=== PATIENT | male | born 1955 | race Caucasian/White ===

== ENCOUNTER 2016-12-14 11:14 | Day surgery (SDC) | payer OTHER ==
--- NOTE | ~2016-12-14 | EGD ---
EGD REPORT [facility] [address] 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 Estimated blood loss: None. Procedure: Pre-Anesthesia Assessment: - After reviewing the risks and benefits, the patient was deemed in satisfactory condition to undergo the procedure. - Prior to the procedure, a History and Physical was performed, and patient medications and allergies were reviewed. The patient's tolerance of previous anesthesia was also reviewed. The risks and benefits of the procedure and the sedation options and risks were discussed with the patient. All questions were answered, and informed consent was obtained. Prior Anticoagulants: The patient has taken Plavix (clopidogrel), last dose was 5 days prior to procedure. The patient had taken Xarelto last night. ASA Grade Assessment: III - A patient with severe systemic disease. After reviewing the risks and benefits, the patient was deemed in satisfactory condition to undergo the procedure. After I obtained informed consent, the scope was passed under direct vision. Throughout the procedure, the patient's blood pressure, pulse, and oxygen saturations were monitored continuously. The CF [id number] was introduced through the anus and advanced to the cecum, identified by appendiceal orifice and ileocecal valve. The colonoscopy was performed without difficulty. The ileocecal valve and appendiceal orifice were photographed. The patient tolerated the procedure well. The quality of the bowel preparation was adequate. The bowel preparation used was polyethylene glycol (PEG). Scope withdrawal time was 6 minutes. Findings: Non-bleeding internal hemorrhoids were found during retroflexion and were small and Grade I (internal hemorrhoids that do not prolapse). EGD REPORT [place] [id number] [place]. [address] NAME: CARL SERNA : [birth year] STATUS : REG [facility]#: [id number] AGE: 61 ADM/REG DATE : 12/14/16 MR#: [id number] REPORT SERV DATE: 12/14/16 DICTATED BY: YARELY HOWARD DATE: 12/14/16 REPORT STATUS : Draft TRANSCRIBED BY: [employer] DATE: 12/14/16 A few small-mouthed diverticula were found in the sigmoid colon and in the descending colon. The ascending colon and cecum appeared normal. Fecal Microbiota Transplant (Bacteriotherapy): Donor stool was prepared by Laboratory staff using water as per protocol. Approximately 450 mL of the emulsified donor stool was instilled in the ascending colon and in the cecum. A detailed colonoscopic exam could not be performed upon scope withdrawal secondary to limited visibility from the instilled stool. The exam was otherwise without abnormality. Impression: - Non-bleeding internal hemorrhoids. - Mild diverticulosis in the sigmoid colon and in the descending colon. - The ascending colon and cecum are normal. - Fecal Microbiota Transplant (Bacteriotherapy) performed in the ascending colon and in the cecum. - The examination was otherwise normal. Recommendation: - Discharge patient to home (ambulatory). - Resume pre-procedure diet. - Resume regular medications including Plavix (clopidogrel) today. - Continue Xarelto. - Complete oral Vancomycin. - Follow-up as needed. - Patient has a contact number available for emergencies. The signs and symptoms of potential delayed complications were discussed with the patient. Return to normal activities tomorrow. Written discharge instructions were provided to the patient. Procedure Code(s): --- Professional --- 54753, Colonoscopy, flexible, proximal to splenic flexure; diagnostic, with or without collection of specimen(s) by brushing or washing, with or without colon decompression (separate procedure) 08374, Preparation of fecal microbiota for instillation, including assessment of donor specimen Diagnosis Code(s): --- Professional --- K64.0, First degree hemorrhoids K57.30, Diverticulosis of large intestine without perforation or abscess without bleeding A04.7, Enterocolitis due to Clostridium difficile CPT copyright 2013 [employer]. All rights reserved. EGD REPORT [facility] [address] [address] NAME: CARL SERNA : [birth year] STATUS : REG [facility]#: [id number] AGE: 61 ADM/REG DATE : 12/14/16 MR#: [id number] REPORT SERV DATE: 12/14/16 DICTATED BY: YARELY HOWARD DATE: 12/14/16 REPORT STATUS : Draft TRANSCRIBED BY: [employer] DATE: 12/14/16 The codes documented in this report are preliminary and upon manager game review may be revised to meet current compliance requirements. YARELY HOWARD MD 12/14/2016 1:23 PM This report has been signed electronically. Number of Addenda: 0 Note Initiated On: 12/14/2016 12:07 PM Scope Withdrawal Time 0 hours 8 minutes 36 seconds [address] [address]
[~2016-12-14 11:14] MED LIST: ASA5GR PO; ASAB PO; ATIVAN2 MG PO; CARDIZEM PO; COR20 PO; CRESTOR20 MG PO; GLUCPH PO; K500 PO; KLONO5 PO; LEXAPRO10 PO; LEXAPRO20 PO; LEXAPRO5 MG PO; LISINOPRIL40 MG PO; LOP50 PO; LORTAB 5 PO; LORTAB10 PO; METHOC750B PO; NEUR300 PO; NITROSTAT0.4 MG SL; NORCO1 TA1 PO; PERCOCET1 TA4 PO; PLAVIX PO; PR25 PO; PRIN20 PO; PROTONIX PO; RANITIDINE300 MG PO; SYMAX-SR0.375 MG PO; VITAMIN B PO; XARELTO20 MG PO; ZANTAC 150 PO; ZOFRAN4 PO
== END 2016-12-14 23:59 | disposition home or self-care (01) ==
LOC: DMU 11:14
PROVIDERS: Internal Medicine Gastroenterology
PROC: 3E0H8GC Introduction of Other Therapeutic Substance into Lower GI, Via Natural or Artificial Opening Endoscopic (ICD-10-PCS; principal; 2016-12-14 13:15)
DX: A04.7 Enterocolitis due to Clostridium difficile (principal); K64.0 First degree hemorrhoids; K57.30 Diverticulosis of large intestine without perforation or abscess without bleeding; K21.9 Gastro-esophageal reflux disease without esophagitis; K44.9 Diaphragmatic hernia without obstruction or gangrene; I25.10 Atherosclerotic heart disease of native coronary artery without angina pectoris; I48.91 Unspecified atrial fibrillation; I25.2 Old myocardial infarction; E11.40 Type 2 diabetes mellitus with diabetic neuropathy, unspecified; E78.00 Pure hypercholesterolemia, unspecified; J44.9 Chronic obstructive pulmonary disease, unspecified; F41.9 Anxiety disorder, unspecified; G47.33 Obstructive sleep apnea (adult) (pediatric); H91.90 Unspecified hearing loss, unspecified ear; M19.90 Unspecified osteoarthritis, unspecified site; N20.0 Calculus of kidney; Z86.73 Personal history of transient ischemic attack (TIA), and cerebral infarction without residual deficits; Z98.1 Arthrodesis status; Z88.5 Allergy status to narcotic agent; Z87.891 Personal history of nicotine dependence; Z95.1 Presence of aortocoronary bypass graft; Z97.4 Presence of external hearing-aid; Z95.5 Presence of coronary angioplasty implant and graft; Z90.49 Acquired absence of other specified parts of digestive tract; Z79.02 Long term (current) use of antithrombotics/antiplatelets; Z79.84 Long term (current) use of oral hypoglycemic drugs; Z79.899 Other long term (current) drug therapy; Z98.890 Other specified postprocedural states
CPT/HCPCS: 82962; J2370

== ENCOUNTER 2016-12-24 22:17 | Observation (INO) | payer OTHER ==
--- NOTE | ~2016-12-24 | DS ---
Discharge Summary [facility] [address] [place]. [address] NAME: CARL AUGUSTE : 51 STATUS : DIS [facility] PAT#: [id number] AGE: 61 ADM/REG DATE : 12/24/16 MR#: [id number] REPORT SERV DATE: 12/26/16 DICTATED BY: CORY CALL DATE: 12/25/16 REPORT STATUS : Draft TRANSCRIBED BY: TIERNEY DATE: 12/25/16 ADMISSION DATE: 12/24/2016 DISCHARGE DATE: 12/25/2016 DISCHARGE DIAGNOSES: 1. Atypical chest pain, most likely gastroesophageal reflux. 2. History of coronary artery disease. 3. Type 2 diabetes mellitus. 4. Hypertension. 5. Hyperlipidemia. 6. Anxiety disorder. 7. Neuropathy. 8. Gastroesophageal reflux disorder. 9. Recent C. diff with fecal transplantation. 10.History of cerebrovascular accident in the past. 11.Atrial fibrillation, currently in sinus rhythm with chronic use of Xarelto. 12.Abdominal aortic aneurysm, managed in the outpatient setting. 13.Obstructive sleep apnea. 14.Restless legs syndrome. CONSULTANTS DURING THIS HOSPITALIZATION: Vhaid Anne M.D., of Cardiology. INVASIVE PROCEDURES DONE DURING THIS HOSPITALIZATION: None. IMAGING DONE DURING THIS HOSPITALIZATION: Nuclear cardiac study showing no reversible ischemia, previous inferior [place], ejection fraction greater than 60%. BRIEF HISTORY OF PRESENT ILLNESS: The patient is a 61-year-old white male who is admitted because of chest pain and thought to have angina. For detailed history and physical exam, please see note dictated by Dr. Jose L Sanchez on 12/24/2016. HOSPITAL COURSE: After being admitted to the hospital, this patient underwent serial enzymes which were negative. He had converted back to sinus rhythm. We kept him on his oral anticoagulation. He underwent a nuclear stress study, report of which is noted as above. I discussed his care with Dr. Anne. Dr. Anne's perception was that he needs to be referred to an outpatient wool sacker as [facility] does not accept his insurance. This will be done through Dr. Bolivar's office and that is already underway. I discussed findings of the study with the patient. He understands and agrees. At this time, we will give him a trial of Carafate along with his other home medications. He remained stable otherwise and is being discharged in stable condition. DISCHARGE DISPOSITION: Home. DISCHARGE ACTIVITY: As tolerated. DISCHARGE DIET: 1800-calorie [place] Diet. Discharge Summary [place] [address] [facility] [address] NAME: CARL AUGUSTE : [birth year] STATUS : DIS [facility] PAT#: [id number] AGE: 61 ADM/REG DATE : 12/24/16 MR#: [id number] REPORT SERV DATE: 12/26/16 DICTATED BY: CORY CALL DATE: 12/25/16 REPORT STATUS : Draft TRANSCRIBED BY: TIERNEY DATE: 12/25/16 DISCHARGE MEDICATIONS: He did not have a complete list of home medications. I have advised him to continue all his home medications and add the Carafate to the list of medicines. DISCHARGE FOLLOWUP: With Dr. Dale Bolivar in one to two weeks and with Dr. Cali Tan for a possibility of a repeat EGD in the near future. More than 30 minutes spent planning this patient's discharge, reconciling medications, writing prescriptions, discussing hospital care, and follow up with the patient and documenting this discharge. JIGNA/TIERNEY Cory Call M.D. / [id number] CC: Yusuf Ball Jr, MD Michael Dant, M.D. Alan Shikoh, M.D.
--- NOTE | ~2016-12-24 | PRECARD ---
[facility] [address] [facility] [place]. [address] NAME: CARL SERNA : 51 STATUS : ADM [facility] PAT#: [id number] AGE: 61 ADM/REG DATE : 12/24/16 MR#: [id number] REPORT SERV DATE: 12/25/16 DICTATED BY: WILMAN MICHAELS DATE: 12/25/16 REPORT STATUS : Draft TRANSCRIBED BY: TIERNEY DATE: 12/25/16 DATE OF ADMISSION: 12/24/2016 HISTORY OF PRESENT ILLNESS: Mr. Serna is a 61-year-old gentleman, who presented with chest discomfort. Mr. Serna has known coronary artery disease, he has multiple drug-eluting stents; history hypertension; atrial fibrillation; and sleep apnea. Last week, he underwent a stool transplant for his C. diff. He had atrial fibrillation at that time, converted to sinus rhythm spontaneously. Subsequently, he has had intermittent episodes of discomfort. These last seconds at a time. These occur randomly . There had been no association with exertion at all. Mr. Serna was at [facility] yesterday, he had apparently episodes of chest discomfort, prompted transfer to [facility]. PAST MEDICAL HISTORY: Hypertension, hyperlipidemia, anxiety, recent C. diff, diabetes, and prior stroke. MEDICATION LIST: The patient is uncertain. We have asked the family to bring the medication list in, he is on Xarelto and Plavix. PHYSICAL EXAMINATION: VITAL SIGNS: Blood pressure is about 170/80. GENERAL: Comfortable, in no acute distress. HEENT: No xanthelasma; lips without cyanosis LUNGS: Clear to auscultation, no wheezes, rales or rhonchi; good breath sounds. COR: No JVD or hepatojugular reflux, no murmurs, rubs or gallops, impulse mid clavicular line without carotid or abdominal bruits; normal S1 and S2. ABDOMEN: Bowel sounds positive, normal activity, without tenderness, masses or hepatosplenomegaly. EXTREMITIES: No edema, cyanosis. SKIN: Normal turgor. Ms: Normal muscle strength, without kyphosis/scoliosis. NEURO/PSYCH: Alert and oriented times 4, no apparent anxiety or depression. LABORATORIES: White count 8.7, hematocrit of 37.9, platelet count is 148, creatinine is 0.7, troponin less than 0.02, BNP 193. EKG: Sinus rhythm without ischemia. ASSESSMENT: Mr. Serna has known coronary artery disease. He has a very atypical chest discomfort. This discomfort does not suggest coronary ischemia to me. He does have known H&P PRE [address] [address] NAME: CARL SERNA : 51 STATUS : ADM [facility] PAT#: [id number] AGE: 61 ADM/REG DATE : 12/24/16 MR#: [id number] REPORT SERV DATE: 12/25/16 DICTATED BY: WILMAN MICHAELS DATE: 12/25/16 REPORT STATUS : Draft TRANSCRIBED BY: TIERNEY DATE: 12/25/16 disease. He has multiple risk factors. He is in sinus rhythm on Xarelto. PLAN: 1. We will obtain a perfusion study because of chest discomfort. 2. We will also arrange for another doughnut dough mixer. Mr. Serna's insurance does not accept [facility], so we will attempt to facilitate a transfer for him. MELITA/TIERNEY Wilman Michaels M.D. / [phone] CC: Yusuf Ball Jr, MD
--- NOTE | ~2016-12-24 | HP ---
History And Physical [place] [address] [facility] [place]. [address] NAME: CARL AUGUSTE : 51 STATUS : ADM [facility] PAT#: [id number] AGE: 61 ADM/REG DATE : 12/24/16 MR#: [id number] REPORT SERV DATE: 12/25/16 DICTATED BY: NHI TRUONG DATE: 12/25/16 REPORT STATUS : Draft TRANSCRIBED BY: MODL DATE: 12/25/16 DATE OF ADMISSION: 12/24/2016 CHIEF COMPLAINT: A 61-year-old male presenting with chest pain. HISTORY OF PRESENTING ILLNESS: The patient's history was obtained through careful interview with the patient, coupled with review of [facility] and [facility] medical records. The patient states that he has been having chronic intermittent chest pain that he describes as "angina" for about the last year. Sometimes, he believes this is attributed to reflux symptoms, but he has also been taking nitroglycerin to relieve this pain. This morning, he had pain in his chest that was typical of his angina, but this time, nitroglycerin did not seem to help. As the day progressed and his chest pain persisted, he finally went to the emergency department at an outlying facility. He was short of breath with dyspnea on exertion. He describes midchest pain with slight radiation to his lower neck, a pulsating pressure "harsh," a quality pain 5/10 severity. It was relieved with nitroglycerin in the emergency department. He had reflux symptoms. He states "it is like I drank some hot sauce." No nausea or vomiting. He does describe shortness of breath characterized by dyspnea on exertion. No fevers or chills. He does have a slight headache. He has had recent C diff colitis, but has not had diarrhea in about three weeks. He underwent a stool transplant under the care of Dr. Tan on 12/14/2016. Also on 12/14/2016, while he was having a stool transplant, he developed some significant palpitations, but they resolved within 24 hours. He has had no palpitations today. At outlying facility, there was a report that the patient had initial EKG that showed significant ST depressions and this was one of the biggest reasons the facility was concerned about cardiac presentation. REVIEW OF SYSTEMS: Otherwise, a 14-point review of systems was obtained and was negative. PAST MEDICAL HISTORY: 1. Hypertension. 2. Elevated cholesterol. 3. Anxiety. 4. Coronary artery disease, status post CABG, but with occluded grafts on recent catheterization of the heart with stent placement x6. The patient has chronic Plavix, followed by Dr. Anne. 5. Neuropathy. 6. Gastroesophageal reflux disorder. History And Physical [address] [address] NAME: CARL AUGUSTE : 51 STATUS : ADM [facility] PAT#: [id number] AGE: 61 ADM/REG DATE : 12/24/16 MR#: [id number] REPORT SERV DATE: 12/25/16 DICTATED BY: NHI TRUONG DATE: 12/25/16 REPORT STATUS : Draft TRANSCRIBED BY: TIERNEY DATE: 12/25/16 7. A cerebellar stroke in 2013 with disability now. 8. Diabetes. 9. Atrial fibrillation, on chronic Xarelto. 10.C diff colitis with fecal transplant, 12/14/2016, seen by Dr. Tan. 11.Abdominal aortic aneurysm measured previously 3.5 cm. 12.Obstructive sleep apnea. 13.Restless legs syndrome. PAST SURGICAL HISTORY: 1. CABG in 1997. 2. Cervical spine surgery. 3. Cholecystectomy. ALLERGIES: PERCOCET AND MORPHINE. SOCIAL HISTORY: Quit smoking. No alcohol abuse. Lives alone in [place], [place]. He is . Has one son, who lives "next door." He also lives next door to his ex- . 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 FAMILY HISTORY: Coronary artery disease. CURRENT MEDICATIONS: The patient is on Plavix and Xarelto, but he is uncertain of his other medications. We requested pharmacy to investigate the patient's medications. PHYSICAL EXAMINATION: VITAL SIGNS: Temperature 98.0, pulse 100, blood pressure 199/99, respiratory rate 16, O2 saturation 99% on room air. GENERAL: A pleasant, cooperative male, in no evidence of acute distress at this time. He is pain free. HEENT: Pupils equal, round, and reactive to light. No conjunctival pallor. No scleral icterus. Nares are patent. Oropharynx is clear of obstruction. Moist mucous membranes. NECK: Trachea midline. No thyromegaly. LYMPH: No cervical lymphadenopathy. No supraclavicular lymphadenopathy. RESPIRATORY: Clear to auscultation at bases. No wheezes, no rales, no rhonchi. Normal respiratory effort. CARDIOVASCULAR: Tachycardic, regular rhythm currently. No murmurs rubs, or gallops. No current extremity edema is appreciated. ABDOMEN: Soft, nontender, nondistended. Normal bowel sounds auscultated throughout. No hepatosplenomegaly. DERMATOLOGICAL: Warm and dry extremities. No pallor, no cyanosis. PSYCHIATRIC: Normal affect. Good mood. Alert and oriented x3. LABORATORY DATA: White blood cell count 9.3, hemoglobin 13, hematocrit 40, platelets 138. Sodium 143, potassium 4.1, chloride 103, bicarb 24, BUN 14, creatinine 0.76, glucose 127, troponin negative, CPK 62, INR 1.2. Liver enzymes within normal limits. STUDIES: History And Physical [address] [address] NAME: CARL AUGUSTE : 51 STATUS : ADM [facility] PAT#: [id number] AGE: 61 ADM/REG DATE : 12/24/16 MR#: [id number] REPORT SERV DATE: 12/25/16 DICTATED BY: NHI TRUONG DATE: 12/25/16 REPORT STATUS : Draft TRANSCRIBED BY: TIERNEY DATE: 12/25/16 1. [facility] acute cardiopulmonary process with COPD changes only. 2. EKG. I was able to review the EKGs from [facility]. The initial EKG did indeed show significant ST depressions in leads V2 through V6, but also is showing atrial fibrillation. About an hour later, an EKG was rechecked on this patient and he had gone into sinus rhythm and all of the ST depressions had completely resolved. There was no ST elevation. a. An EKG obtained at our hospital showed sinus rhythm with no significant abnormalities at all. ASSESSMENT AND PLAN: 1. Chest pain evaluation. I would like to ask the patient's environmental systems coordinator, Dr. Anne, to consult. Question whether this could be from intermittent symptomatic atrial fibrillation? Possibly from uncontrolled gastroesophageal reflux disorder? I would like to try adding Carafate, but I am also concerned about coronary artery disease with a history of CABG in 1997 and six stents placed ever since then. We will check a nuclear cardiac stress test. Continue Plavix and nitro paste. 2. Paroxysmal atrial fibrillation. Check telemetry. Check echocardiogram. Continue Xarelto. 3. Diabetes. Check hemoglobin A1c. Place on sliding scale insulin. 4. Late effects of cerebellar stroke. KPL/MODL Nhi Truong M.D. / [id number] CC: Yusuf Ball Jr, MD Michael Dant, M.D. Mark Thel, M.D.
[2016-12-25 00:07] LABS: BUN (BLOOD UREA NITROGEN) 16 MG/DL (6-23); CALCIUM, SERUM 8.8 MG/DL (8.5-10.4); CHLORIDE, SERUM 108 MMOL/L (96-112); CK-MB 0.9 NG/ML; CO2 (CARBON DIOXIDE) 31 MMOL/L (24-34); CPK 51 U/L (0-200); CREATININE 0.77 MG/DL (0.70-1.30); GFR AFRICAN AMERICAN 112 ML/MIN (>=60); GFR NON AFRICAN AMERICAN 97 ML/MIN (>=60); GLUCOSE, SERUM 90 MG/DL (60-99); POTASSIUM, SERUM 3.6 MMOL/L (3.5-5.3); SODIUM, SERUM 145 MMOL/L (135-148)
[2016-12-25] MEDS ORDERED: *UNABLE1 (02:09)
[2016-12-25 04:38] LABS: BASOPHILS 0.6 %; BASOPHILS ABSOLUTE 0.05 10/3/uL (0.0-0.16); EOSINOPHILS ABSOLUTE 0.44 10/3/uL (0.0-0.53); HEMOGLOBIN 12.5 g/dL (13.6-17.8); IMMATURE GRANULOCYTES 0.2 %; IMMATURE GRANULOCYTES ABSOLUTE 0.02 10/3/uL (0.0-0.11); LYMPHOCYTES 33.8 %; LYMPHOCYTES ABSOLUTE 2.95 10/3/uL (0.67-4.30); MEAN CORPUSCULAR HEMOGLOB 29.5 pg (26.0-34.0); MEAN CORPUSCULAR VOLUME 89.4 fL (80-100); MEAN PLATELET VOLUME 10.6 fL (9.2-13.0); MONOCYTES 11.9 %; MONOCYTES ABSOLUTE 1.04 10/3/uL (0.21-1.20); NEUTROPHILS 48.5 %; NEUTROPHILS ABSOLUTE 4.24 10/3/uL (2.02-8.40); PLATELET COUNT 148 10/3/uL (150-400); RBC DISTRIBUTION WIDTH 12.9 % (12.0-16.0); RED CELL COUNT 4.24 10/6/uL (4.7-6.1); WHITE BLOOD CELLS 8.7 10/3/uL (4.5-10.5)
[2016-12-25 04:39] LABS: HEMATOCRIT 37.9 % (40.0-51.0); MANUAL DIFF NO %
[2016-12-25 04:45] LABS: INTERNATIONAL NORMAL RATI 1.3 UNITS (-); PROTIME (NOT ORD) 15.8 SEC (12.0-14.5)
[2016-12-25 04:46] LABS: PARTIAL THROMBO TIME 37.8 SEC (22.5-37.2)
[2016-12-25 05:16] LABS: B NATRIURETIC PEPTIDE (BNP) 193.2 PG/ML (< 100.0)
[2016-12-25 06:14] LABS: A/G RATIO 1.1 (0.7-1.9); ALBUMIN 3.4 G/DL (3.5-5.0); BUN (BLOOD UREA NITROGEN) 15 MG/DL (6-23); CALCIUM, SERUM 8.8 MG/DL (8.5-10.4); CHLORIDE, SERUM 108 MMOL/L (96-112); CREATININE 0.71 MG/DL (0.70-1.30); GFR AFRICAN AMERICAN 116 ML/MIN (>=60); GFR NON AFRICAN AMERICAN 100 ML/MIN (>=60); GLUCOSE, SERUM 83 MG/DL (60-99); POTASSIUM, SERUM 3.4 MMOL/L (3.5-5.3); SGOT(AST) 11 U/L (5-40); SGPT(ALT) 15 U/L (5-65); SODIUM, SERUM 146 MMOL/L (135-148); TOTAL BILIRUBIN 0.8 MG/DL (0-1.2); TOTAL PROTEIN 6.4 G/DL (6.0-8.5); TROPONIN I <0.02 NG/ML (<0.05)
[2016-12-25 06:16] LABS: ALKALINE PHOSPHATASE 74 U/L (45-117); CO2 (CARBON DIOXIDE) 26 MMOL/L (24-34)
[2016-12-25 07:41] LABS: GLYCOHEMOGLOBIN (HbA1c) 6.1 % (4.7-6.1)
[2016-12-25] MEDS ORDERED: SUCR PO (14:02)
== END 2016-12-25 14:56 | disposition home or self-care (01) ==
LOC: CDU1 22:17
PROVIDERS: Internal Medicine
DX: R07.89 Other chest pain (principal); I25.10 Atherosclerotic heart disease of native coronary artery without angina pectoris; I10 Essential (primary) hypertension; I48.0 Paroxysmal atrial fibrillation; I71.4 Abdominal aortic aneurysm, without rupture; E78.5 Hyperlipidemia, unspecified; E11.40 Type 2 diabetes mellitus with diabetic neuropathy, unspecified; E78.00 Pure hypercholesterolemia, unspecified; F41.9 Anxiety disorder, unspecified; K21.9 Gastro-esophageal reflux disease without esophagitis; G47.33 Obstructive sleep apnea (adult) (pediatric); G25.81 Restless legs syndrome; Z95.1 Presence of aortocoronary bypass graft; Z90.49 Acquired absence of other specified parts of digestive tract; Z87.891 Personal history of nicotine dependence; Z86.73 Personal history of transient ischemic attack (TIA), and cerebral infarction without residual deficits; Z88.5 Allergy status to narcotic agent; Z82.49 Family history of ischemic heart disease and other diseases of the circulatory system; Z79.02 Long term (current) use of antithrombotics/antiplatelets; Z79.899 Other long term (current) drug therapy; Z98.890 Other specified postprocedural states
CPT/HCPCS: 71010; 78452; 80048; 80053; 82150; 82550; 82553; 82962; 83036; 83690; 83735; 83880; 84443; 84484; 85025; 85610; 85730; 93005; 93017; 93306; 96365; A9270-GY; A9502; G0378